=== PATIENT | female | born 1925 | race Caucasian/White ===

== ENCOUNTER → 2016-11-08 | Outpatient (REF) ==
[~2016-11-08] MED LIST: AMLODIPINE10 MG PO; ASPIRIN E.C. 8181 MG PO; CARDI-OMEGA1000 MG PO; CLARITIN REDITA10 MG PO; COZAAR; COZAAR100 MG PO; CRESTOR5 MG PO; LASIX20 MG PO; LEVAQUIN 5500 MG/TA1 PO; LEVAQUIN 750MG750 M1 PO; LUTEIN 6 MG PO; METFORMIN500 MG PO; METOPROLOL SUCC50 M1 PO; PRILOSEC 20MG20 MG PO; SINGULAIR 110 MG/TAB PO; TOPROL XL 50MG50 MG PO; TOPROL XL100 MG PO; VITAMIN D1000 IU PO; ZITHROMAX 250M250 MG PO; ZYRTEC 10MG10 MG PO; [UNRECOGNIZED DRUG - OTHER] PO
== END ==
LOC: ZLAB.WCH 18:04
DX: Z01.89 Encounter for other specified special examinations (principal)